=== PATIENT | female | born 1975 | race Caucasian/White ===

== ENCOUNTER 2018-06-12 17:28 | Emergency (ER) | payer OTHER ==
[~2018-06-12] VITALS: Ht 172.7 cm; Wt 82.6 kg
[~2018-06-12 17:28] MED LIST: ALLERGY10 M1 PO; APAP500 PO; DICYCLOMINE HCL10 MG PO; GABAPENTIN PO; HYDROCODON-ACE1 EAC7 PO; LACTASE 3000U T1 TA1 PO; LIDODERM 5%1 PATCH TOP; MEDROLDOSEPACK PO; MULTIVITAMINS PO; NOHOMEMEDICATIONS; NORCO 5-325 TA1 EACH PO; OMEPRAZOLE MAGN20 MG PO; PERCOCET 5-3251 EACH PO; ROBAXIN 750 MG750 M1 PO; ULTRAM 50MG TAB50 MG PO; ZOFRAN4 MG PO
[2018-06-12] MEDS ORDERED: DICLOFENAC POTA50 MG PO (18:57)
[2018-06-12 19:04] VITALS: BP 121/89
== END 2018-06-12 19:05 | disposition home or self-care (01) ==
LOC: M.ERS 17:28
DX: S70.01XA Contusion of right hip, initial encounter (principal); F17.210 Nicotine dependence, cigarettes, uncomplicated; Z90.49 Acquired absence of other specified parts of digestive tract; Z98.890 Other specified postprocedural states; Z88.5 Allergy status to narcotic agent; Z88.6 Allergy status to analgesic agent; Z91.040 Latex allergy status; W10.8XXA Fall (on) (from) other stairs and steps, initial encounter; Y93.89 Activity, other specified; Y92.89 Other specified places as the place of occurrence of the external cause; Y99.8 Other external cause status

== ENCOUNTER 2019-08-29 11:10 | Emergency (ER) | payer OTHER ==
[~2019-08-29] VITALS: Ht 172.7 cm; Wt 79.8 kg
[~2019-08-29 11:10] MED LIST changes: +DICLOFENAC POTA50 MG PO
[2019-08-29] MEDS ORDERED: NORCO 5-325 TA1 EAC2 PO (12:41)
[2019-08-29 12:55] VITALS: BP 121/80
[2019-09-03] MEDS ORDERED: NORCO 10-325 T1 EACH PO (20:14)
== END 2019-08-29 12:56 | disposition home or self-care (01) ==
LOC: M.ERS 11:10
DX: G89.18 Other acute postprocedural pain (principal); M25.571 Pain in right ankle and joints of right foot; Z88.5 Allergy status to narcotic agent; Z88.6 Allergy status to analgesic agent; Z91.040 Latex allergy status; Z98.51 Tubal ligation status; Z90.89 Acquired absence of other organs